=== PATIENT | female | born 1940 | race Caucasian/White ===

== ENCOUNTER 2020-09-26 12:31 | Emergency (ER) | payer OTHER ==
--- OUTSIDE RECORDS SUMMARY | 2020-09-26 12:33 | XMS REPORT | Clinical Summary ---
:1940 Author Organization [facility] Address [address] [place] [address] Care Team Providers Name Role Phone Anthony Odell MD Primary Care Provider Allergies No Known Active Allergies Medications Medication Sig Dispensed Refills Start Date End Date Status rosuvastatin (CRESTOR) Take 5 mg by 0 Active 5 MG tablet mouth. SYNTHROID 75 mcg tablet 0 01/29/2017 Active TOPROL XL 25 mg 24 hr 0 01/20/2017 Active tablet VIT A/VIT C/VIT Take by mouth. 0 Active E/ZINC/COPPER (VITAMINS A,C,D-LXBH-OLOCWI ORAL) travoprost (TRAVATAN Z) daily. 0 02/02/2017 Active 0.004 % valsartan-hydrochloroth Take 1 tablet by 1 8 Active iazide (DIOVAN-HCT) mouth daily. 80-12.5 mg per tablet Active Problems Problem Noted Date Hemorrhoids GERD (gastroesophageal reflux disease) Colon polyp Family history of cancer in mother Surgical History Surgery Date Site/Laterality Comments COLONOSCOPY HYSTERECTOMY TONSILLECTOMY Medical History Medical History Date Comments Hemorrhoids GERD (gastroesophageal reflux disease) Colon polyp Hypertension Hyperlipidemia Bronchitis Disease of thyroid gland Family history of cancer in mother Macular degeneration Diverticulosis Family History Medical History Relation Name Comments Colon cancer Mother Relation Name Status Comments Father Mother Social History Tobacco Use Types Packs/Day Years Used Date Never Smoker Smokeless Tobacco: Never Used Tobacco Cessation: Counseling Given: No Alcohol Use Drinks/Week oz/Week Comments Yes Sex Assigned at Date Recorded Not on file Last Filed Vital Signs Not on file Plan of Treatment Health Maintenance Due Date Last Done Comments SHINGLES VACCINES (#1) 1990 65+ PNEUMOCOCCAL VACCINE (1 of 1 - PPSV23) 2005 INFLUENZA VACCINE 06/06/2020 Results Not on fileafter 09/26/2019 Insurance Payer Benefit Plan / Subscriber ID Effective Dates Phone Addre ss Type Group HUMANA MEDICARE HUMANA MEDICARE [id number] 2018-Present PPO PPO/PFFS/[facility] Advance Directives For more information, please contact: [phone] Type Date Recorded Patient Credit Portfolio Manager Explanati on Advance Directives, Living Will and Medical Power of Slitter Service And Setter
--- OUTSIDE RECORDS SUMMARY | 2020-09-26 12:34 | XMS REPORT | Continuity of Care Document ---
:1940 Author Organization [facility] t Address [address] [place] [address] Care Team Providers Name Role Phone Melecio Odell MD Primary Care Physician Payers Payer Name Policy Type Policy Number Effective Date Expiration Date S ource Problems Condition Condition Condition Status Onset Resolution Last Treating Co mments Source Name Details Category Date Date Treatment Clinician Date Hemorrhoid Hemorrhoid Disease [facility] [place] [facility] GERD GERD Disease Active [facility] (gastroeso (gastroeso [facility] phageal phageal st reflux reflux disease) disease) Colon Colon Disease Active [facility] polyp polyp Methodi [facility] Family Family Disease Active [facility] history of history of [place] cancer in cancer in st mother mother Allergies, Adverse Reactions, Alerts Allergy Allergy Status Severity Reaction(s) Onset Inactive Treating Comm ents Source Name Type Date Date Clinician No Known DA Active U 2019-11 [facility] [place] [facility] DA Active [facility] omycin 03-11 [place] 00:[facility] DA Active OR [facility] omycin 03-08 [place] 00:[facility] Family History Family Member Diagnosis Comments Start Date Stop Date Source Natural mother Colon cancer [facility] Social History Social Habit Start Date Stop Date Quantity Comments Source Sex Assigned At [facility] ethodist Tobacco use and 2018-12-06 2018-12-06 Never used [facility] ethodist exposure 00:00:00 00:00:00 Alcohol intake 2018-12-06 2018-12-06 Current drinker [facility] 00:00:00 00:00:00 of alcohol (finding) Smoking Status Start Date Stop Date Source Never smoker [facility] t Medications Ordered Filled Start Stop Current Ordering Indication Dosage Frequency Signature Comments Components Source Medication Medication Date Date Medication? Clinician (SIG) Name Name VIT A/VIT Yes Take by [place] [facility] C/VIT 12-06 mouth. Methodi E/ZINC/MARTINEZ 14:00: st ER 40 (VITAMINS A,C,E-ZINC- COPPER ORAL) rosuvastati Yes 5mg Take 5 mg [place] (CRESTOR) 12-06 by mouth. Met hodi 5 MG tablet 14:00: st 27 valsartan-h 2017-11 Yes 1{tbl} QD Take 1 [place] ydrochlorot 2-07 tablet by [facility] hiazide 00:00: mouth st (DIOVAN-HCT 00 daily. ) 80-12.5 mg per tablet travoprost 2017-0 Yes daily. [facility] (TRAVATAN 3-30 [facility]i Z) 0.004 % 00:00: st 00 SYNTHROID 2017-0 Yes [place] 75 mcg 3-26 [facility] tablet 00:00: st 00 TOPROL XL 2017-0 Yes [facility] 25 mg 24 hr 3-17 [facility] tablet 00:00: st 00 Procedures This patient has no known procedures. Plan of Care Planned Activity Planned Date Details Comments Source Future Scheduled 2020-06-06 INFLUENZA VACCINE [facility] 00:00:00 [code = INFLUENZA VACCINE] Future Scheduled 2005 65+ PNEUMOCOCCAL [facility] Test 00:00:00 VACCINE (1 of 1 - PPSV23) [code = 65+ PNEUMOCOCCAL VACCINE (1 of 1 - PPSV23)] Future Scheduled 1990 [facility] [code = SHINGLES VACCINES (#1)] Results Test Description Test Time Test Comments Results Result Sourc e Comments - XR FLUORO NDL 2020-08-30 20:02:00 [facility] 1940 Sex: F Patient Name: NAI COELHO Unit No: [id number] EXAMS: CPT CODE: [id number] XR FLUORO NDL 35589 Fluoroscopically guided injection of the left plantar fascia with steroid COMPARISON: No prior exams available. FINDINGS: After informed consent was obtained a needle was placed in the left plantar fascia with fluoroscopic guidance. Its position was confirmed by obtaining a radiograph. Subsequently 2 mL of Kenalog 40 mg per cc and 2 mL of lidocaine was injected. No immediate complications were encountered. 14 seconds of fluoroscopy time was utilized. IMPRESSION: Technically successful steroid injection of the left plantar fascia at 2001 Reported and signed by: Richie Odell M.D. CC: Omega Moran MD Technologist: RT Madison.(R) Transcribed D/ (2001) FletcherSLJ [facility] [place] [facility] NAME: NAI COELHO [address] PHYS: Omega Rojas MD : 1940 AGE: 80 SEX: F [place], [place] [address] LOC: Y.RAD PHONE #: [phone] EXAM DATE: 08/28/2020 STATUS: MARY CLI FAX #: [phone] RAD #: [id number] D/C DT PAGE 1 Signed Report Patient Name: NAI COELHO Unit No: [id number] EXAMS: CPT CODE: [id number] XR FLUORO NDL 48429 <Continued> Orig Print D/T: S: 08/30/2020 (2004) [facility] [place] [facility] NAME: NAI COELHO [address] PHYS: Omega Rojas MD : 1940 AGE: 80 SEX: F [place] [address] LOC: Y.RAD PHONE #: [phone] EXAM DATE: 08/28/2020 STATUS: DEP CLI FAX #: [phone] RAD #: [id number] D/C DT PAGE 2 Signed Report - MRI LW JNT W/O 2020-08-12 Patient Name: CONT LT 12:50:00 NAI COELHO Unit No: [id number] EXAMS: CPT CODE: [id number] MRI LW JNT W/[place] [address] MRI OF THE LEFT ANKLE DIAGNOSIS: 1. 11 mm ganglion cyst between the posterior tibial tendon and the spring ligament with partial tearing of the distal posterior tibial tendon without retraction. 2. Partial-thickness longitudinal split tear of the peroneus brevis tendon without subluxation. There is a small amount of tendon sheath effusion which may represent tenosynovitis. 3. Effusion and/or synovitis of the tibiotalar and posterior subtalar joints. COMMENT: COMPARISON: No prior exams available. Scans were performed in the sagittal, axial and coronal planes utilizing T1, spin density with and without fat saturation and inversion recovery images. No focal bony or hyaline cartilage lesions are seen. There is no evidence for a stress fracture. Tendon abnormalities are as described. There is no evidence for ligamentous sprain or tear. There is a plantar calcaneal spur without evidence for plantar fasciitis. at 1250 Reported and signed by: Jose Luis Resendiz MD CC: Omega Moran MD Technologist: Ally Henderson(R) Transcribed D/ (1250) FletcherJCL [facility] [place] [facility] NAME: NAI COELHO [address] PHYS: Omega Rojas MD : 1940 AGE: 80 SEX: F [place] [address] LOC: Y.MRI PHONE #: [phone] EXAM DATE: 08/12/2020 STATUS: REG CLI FAX #: [phone] RAD #: [id number] D/C DT PAGE 1 Signed Report Patient Name: NAI COELHO Unit No: [id number] EXAMS: CPT CODE: [id number] [place] JNT W/[place] [address] <Continued> Orig Print D/T: S: 08/12/2020 (1253) [facility] [place] [facility] NAME: NAI COELHO [address] PHYS: Omega Rojas MD : 1940 AGE: 80 SEX: F [place], [place] [address] LOC: Y.MRI PHONE #: [phone] EXAM DATE: 08/12/2020 STATUS: REG CLI FAX #: [phone] RAD #: [id number] D/C DT PAGE 2 Signed Report - XR FLUORO FOR 2019-03-11 Patient Name: SPINE INJ 12:41:00 NAI COELHO Unit No: [id number] EXAMS: CPT CODE: [id number] XR FLUORO FOR SPINE INJ 22437 LUMBAR TRANSFORAMINAL INJECTION REFERRING PHYSICIAN: PREOPERATIVE DIAGNOSIS: Degenerative Lumbar Disc Disease. POSTOPERATIVE DIAGNOSIS: Bilateral lumbar radiculopathy PROCEDURES PERFORMED 1. Fluoroscopically guided needle localization of the bilateral L4, bilateral L5 spinal nerve/nerves with transforaminal epidural steroid injection/injections. 2. Transforaminal epidurogram/epidurogram s at bilateral L4, bilateral L5. FINDINGS: Poor filling bilateral L4, bilateral L5. Concordant provocation bilateral L5 buttocks, left L4 hip. Pain relief-100%. ANTIBIOTIC: Cefazolin ESTIMATED BLOOD LOSS: Minimal ANESTHESIA: (TIVA )Total intravenous anesthetic (patient intolerant to sedatives and hypnotics) COMPLICATIONS: None DETAILS OF PROCEDURE: After obtaining stable vital signs, informed consent and IV access, with no known contraindications to proceeding, the patient was taken to the fluoroscopy suite and placed in a prone position with all extremities padded and appropriate monitors placed. A sterile prep and drape was performed over the lumbosacral spine. Using fluoroscopic visualization at each level the insertion site was marked for a paravertebral approach to the foramen. Using standard technique, a 25 gauge needle was advanced to the base of the pedicle. In AP view, final positioning was obtained outside the 6 on the clock position on the pedicle. Then, 1 ml of Isovue-300 contrast was injected to produce the epidurograms. No paresthesias were elicited with needle insertion or injection and there were no signs of intravascular or intrathecal uptake. Then, with 1 ml of 4% lidocaine and 10 mg of triamcinolone was injected incrementally with frequent negative aspirations. There were no signs of intravascular or intrathecal uptake. Each subsequent level was done using the same technique and medications. The patient's vital signs remained stable. The patient was taken to the PACU in good condition. at 1241 Reported and signed by: Jluis Jones M.D. [facility] NAME: NAI COELHO [address] PHYS: Jluis Lopez MD [place], [place] [address] : 1940 AGE: 78 SEX: F LOC: MARA PHONE #: [phone] EXAM DATE: 03/11/2019 STATUS: REG SD FAX #: [phone] RAD #: [id number] D/C DT PAGE 1 Signed Report (CONTINUED) Patient Name: NAI COELHO Unit No: [id number] EXAMS: CPT CODE: [id number] XR FLUORO FOR SPINE INJ 97735 <Continued> CC: Technologist: Sahra Canales(R) Transcribed D/ (4301) tLENI [facility] NAME: NAI COELHO [address] PHYS: Jluis Lopez MD [place], [place] [address] : 1940 AGE: 78 SEX: F LOC: MARA PHONE #: [phone] EXAM DATE: 03/11/2019 STATUS: REG [facility] FAX #: [phone] RAD #: [id number] D/C DT PAGE 2 Signed Report Patient Name: NAI COELHO Unit No: [id number] EXAMS: CPT CODE: [id number] XR FLUORO FOR SPINE INJ 28710 <Continued> Orig Print D/T: S: 03/11/2019 (1244) [facility] NAME: NAI COELHO [address] [facility] [address] PHYS: DOCUD - Doctor,Jluis Pino MD [place], [place] [address] : 1940 AGE: 78 SEX: F LOC: WongGABRIEL PHONE #: [phone] EXAM DATE: 03/11/2019 STATUS: REG [facility] FAX #: [phone] RAD #: [id number] D/C DT PAGE 3 Signed Report
[2020-09-26] MEDS ORDERED: IBUPROFEN 400 MG TAB ONE (14:08)
--- NOTE | 2020-09-26 14:42 | RAD REPORT ---
EXAM DESCRIPTION: RAD - Knee Right 3 View - 09/26/2020 2:17 pm CLINICAL HISTORY: Right knee pain FINDINGS: No fracture or dislocation is seen. Mild osteoarthritis medial compartment
--- NOTE | 2020-09-26 14:42 | RAD REPORT ---
EXAM DESCRIPTION: RAD - Hip Right 2 View - 09/26/2020 2:17 pm CLINICAL HISTORY: Right hip pain FINDINGS: No fracture or dislocation is seen. Mild osteoarthritis consisting of subchondral sclerosis and mild joint space narrowing. Bones appear osteoporotic
--- NOTE | 2020-09-26 15:05 | ER ---
Nurse's Notes [facility] Name: Anusha Vazquez Age: 80 yrs Sex: Female : 1940 Arrival Date: 09/26/2020 Time: 12:36 Bed 19 Private MD: Tanika Odell C Diagnosis: Pain in right leg Presentation: 09/26 12:48 Chief complaint: Patient states: RLE pain/cramping for 1 week. Started as cramps to ll1 extremity. Tried to hydrate. Noticed pain and swelling to calf area since . Area feels hot. Coronavirus screen: Client denies travel out of the [place] in the last 14 days. At this time, the client does not indicate any symptoms associated with coronavirus-19. Ebola Screen: Patient denies travel to an Ebola-affected area in the 21 days before illness onset. Initial Sepsis Screen: Does the patient meet any 2 criteria? No. Patient's initial sepsis screen is negative. Does the patient have a suspected source of infection? Yes: Bone or joint infection. Risk Assessment: Do you want to hurt yourself or someone else? Patient reports no desire to harm self or others. Onset of symptoms was September 19, 2020. 12:48 Method Of Arrival: Ambulatory ll1 12:48 Acuity: GRIFFIN 3 ll1 Triage Assessment: 15:36 General: Appears in no apparent distress. Behavior is calm, cooperative. Pain:. ae4 Historical: - Allergies: 12:52 Bactrim DS; ll1 - PMHx: 12:52 High Cholesterol; Hypertension; Hypothyroidism; macular degeneration; ll1 - PSHx: 12:52 Hysterectomy; ll1 - Immunization history:: Flu vaccine is up to date. - Social history:: Smoking status: Patient denies any tobacco usage or history of. Screenin:36 Abuse screen: Denies threats or abuse. Nutritional screening: No deficits noted. ae4 Tuberculosis screening: No symptoms or risk factors identified. Fall Risk None identified. Assessment: 12:45 General: Appears in no apparent distress. comfortable. Pain: Complains of pain in right ae4 calf Pain does not radiate. Neuro: Level of Consciousness is awake, alert, obeys commands, Oriented to person, place, time, situation, Appropriate for age. Cardiovascular: Patient's skin is warm and dry. Respiratory: Airway is patent Respiratory effort is even, unlabored, Respiratory pattern is regular, symmetrical. GI: No signs and/or symptoms were reported involving the gastrointestinal system. : No signs and/or symptoms were reported regarding the genitourinary system. EENT: No signs and/or symptoms were reported regarding the EENT system. Derm: redness and mild swelling to right posterior lower extremity. Musculoskeletal: Swelling present in right calf. 13:30 Reassessment: Patient and/or family updated on plan of care and expected duration. Pain ae4 level reassessed. Patient is alert, oriented x 3, equal unlabored respirations, skin warm/dry/pink. 14:49 Reassessment: Patient states " I can stand the pain", refused medication. Provider ae4 notified. Vital Signs: 12:48 BP 149 / 72; Pulse 74; Resp 16; Temp 97.5; Pulse Ox 100% ; Weight 69.4 kg; Height 5 ft. ll1 3 in. (160.02 cm); Pain 8/10; 13:30 BP 136 / 97; Pulse 86; Resp 16; Pulse Ox 100% on R/A; dh3 14:53 BP 119 / 70; Pulse 93; Resp 16; Pulse Ox 97% on R/A; dh3 12:48 Body Mass Index 27.10 (69.40 kg, 160.02 cm) ll1 ED Course: 12:36 Patient arrived in ED. mr 12:36 Tanika Odell MD is Private Physician. mr 12:40 Placed in gown. Bed in low position. Call light in reach. Side rails up X 1. Pulse ox ae4 on. NIBP on. Warm blanket given. 12:50 Triage completed. ll1 12:51 Arm band placed on. ll1 13:29 Abdullahi Fields PA is PHCP. cp 13:29 Thien Waite MD is Attending Physician. cp 13:45 Estrada Guo RN is Primary Nurse. ae4 14:18 XRAY Hip RIGHT 2 view In Process Unspecified. EDMS 14:18 XRAY Knee RIGHT 3 view In Process Unspecified. EDMS 15:04 US Extremity Venous Unilateral Ltd In Process Unspecified. EDMS 15:37 No provider procedures requiring assistance completed. Patient did not have IV access ae4 during this emergency room visit. Administered Medications: 14:49 Not Given (Patient Refused): Ibuprofen 800 mg PO once ae4 Outcome: 15:05 Discharge ordered by MD. hernadez 15:37 Discharged to home ambulatory. ae4 15:37 Condition: stable 15:37 Discharge instructions given to patient, Instructed on discharge instructions, follow up and referral plans. Demonstrated understanding of instructions, follow-up care, medications, Prescriptions given X 1. 15:41 Patient left the ED. ae4 Signatures: Dispatcher [employer] EDAZ JohnsMarisela mr Abdullahi Fields PA PA cp Herrera, Deanna 3 Estrada Guo RN RN ae4 Reena Pereira RN RN ll1 Corrections: (The following items were deleted from the chart) 14:49 13:58 Ibuprofen 800 mg PO ae4 ae4
--- NOTE | 2020-09-26 15:05 | EDPHYS ---
Physician Documentation [facility] Name: Anusha Vazquez Age: 80 yrs Sex: Female : 1940 Arrival Date: 09/26/2020 Time: 12:36 Bed 19 Private MD: Tanika Odell C ED Physician Thien Waite HPI: 09/26 13:55 This 80 yrs old Female presents to ER via Ambulatory with complaints of Leg cp Swelling, Leg Pain. 13:55 The patient presents with pain, that is acute, swelling, tenderness. The complaints cp affect the posterior aspect of right knee and right calf. 13:55 Context: resulted from an unknown cause, the patient can fully bear weight, the patient cp is able to ambulate, with mild difficulty. Onset: The symptoms/episode began/occurred 1 week(s) ago. Associated signs and symptoms: Pertinent negatives fever, chest pain, shortness of breath. Treatment prior to arrival includes: no previous treatment. 13:55 Patient denies trauma of known injury. cp Historical: - Allergies: 12:52 Bactrim DS; ll1 - PMHx: 12:52 High Cholesterol; Hypertension; Hypothyroidism; macular degeneration; ll1 - PSHx: 12:52 Hysterectomy; ll1 - Immunization history:: Flu vaccine is up to date. - Social history:: Smoking status: Patient denies any tobacco usage or history of. ROS: 14:00 MS/extremity: Positive for pain, swelling, tenderness, of the right leg. cp 14:00 Constitutional: Negative for body aches, chills, fever, poor PO intake. cp 14:00 Cardiovascular: Negative for chest pain, palpitations. 14:00 Respiratory: Negative for cough, shortness of breath, wheezing. 14:00 Skin: Negative for rash. 14:00 Neuro: Negative for altered mental status, headache, syncope, weakness. 14:00 All other systems are negative. Exam: 14:05 Head/Face: Normocephalic, atraumatic. cp 14:05 Constitutional: The patient appears in no acute distress, alert, awake, non-diaphoretic, non-toxic, well developed, well nourished. 14:05 Chest/axilla: Inspection: normal. 14:05 Cardiovascular: Rate: normal, Rhythm: regular, Edema: is not appreciated, JVD: is not appreciated. 14:05 Respiratory: the patient does not display signs of respiratory distress, Respirations: normal, no use of accessory muscles, no retractions, labored breathing, is not present, Breath sounds: are clear throughout, no decreased breath sounds, no stridor, no wheezing. 14:05 Abdomen/GI: Exam negative for discomfort, distension, guarding, Inspection: abdomen appears normal. 14:05 Back: pain, is absent, ROM is normal. 14:05 Musculoskeletal/extremity: Joints: All joints are normal except the right hip displays tenderness, the right knee displays tenderness, DVT Exam: pain, that is mild, of the right leg, tenderness, that is mild, of the right leg, positive Homans' sign noted on exam. 14:05 Skin: cellulitis, is not appreciated, no rash present. cp Vital Signs: 12:48 BP 149 / 72; Pulse 74; Resp 16; Temp 97.5; Pulse Ox 100% ; Weight 69.4 kg; Height 5 ft. ll1 3 in. (160.02 cm); Pain 8/10; 13:30 BP 136 / 97; Pulse 86; Resp 16; Pulse Ox 100% on R/A; dh3 14:53 BP 119 / 70; Pulse 93; Resp 16; Pulse Ox 97% on R/A; dh3 12:48 Body Mass Index 27.10 (69.40 kg, 160.02 cm) ll1 MDM: 13:34 Patient medically screened. cp 15:00 ED course: Received verbal report from [facility] that right leg US negative for DVT. cp 15:05 Data reviewed: vital signs, nurses notes, radiologic studies, plain films, ultrasound. cp 15:05 Differential diagnosis: closed fracture, DVT, cellulitis. Counseling: I had a detailed cp discussion with the patient and/or guardian regarding: the historical points, exam findings, and any diagnostic results supporting the discharge/admit diagnosis, radiology results, to return to the emergency department if symptoms worsen or persist or if there are any questions or concerns that arise at home. 15:05 ED course: VSS. Radiology studies negative. Will discharge to home for continued cp monitoring. 09/26 13:48 Order name: US Extremity Venous Unilateral Ltd; Complete Time: 15:28 cp 09/26 15:28 Interpretation: Report reviewed. 09/26 13:51 Order name: XRAY Hip RIGHT 2 view; Complete Time: 15:04 cp 09/26 15:04 Interpretation: Report reviewed. cp 09/26 13:51 Order name: XRAY Knee RIGHT 3 view; Complete Time: 15:04 cp 09/26 15:04 Interpretation: Report reviewed. cp Administered Medications: 14:49 Not Given (Patient Refused): Ibuprofen 800 mg PO once ae4 Disposition: 09/27 06:59 Co-signature as Attending Physician, Thien Waite MD I agree with the assessment and kdr plan of care. Disposition: 09/26/20 15:05 Discharged to Home. Impression: Pain in right leg. - Condition is Stable. - Discharge Instructions: Musculoskeletal Pain, Heat Therapy. - Prescriptions for Mobic 7.5 mg Oral Tablet - take 1 tablet by ORAL route once daily take with food; 20 tablet. - Medication Reconciliation Form, Thank You Letter, Antibiotic Education, Prescription Opioid Use form. - Follow up: Private Physician; When: 2 - 3 days; Reason: Recheck today's complaints. - Problem is new. - Symptoms have improved. Signatures: Dispatcher [employer] EDMS Thien Waite MD MD kdr Abdullahi Fields PA PA cp Estrada Guo RN RN ae4 Reena Pereira RN RN ll1 Corrections: (The following items were deleted from the chart) 09/26 15:41 15:05 09/26/2020 15:05 Discharged to Home. Impression: Pain in right leg. Condition is ae4 Stable. Forms are Medication Reconciliation Form, Thank You Letter, Antibiotic Education, Prescription Opioid Use. Follow up: Private Physician; When: 2 - 3 days; Reason: Recheck today's complaints. Problem is new. Symptoms have improved. cp
--- NOTE | 2020-09-26 15:13 | RAD REPORT ---
EXAM DESCRIPTION: USExtremity Venous Uni Ltd09/26/2020 3:04 pm CLINICAL HISTORY: Right leg pain and swelling. COMPARISON: None. FINDINGS: Right common femoral, superficial femoral, popliteal and right posterior tibial veins are compressible and demonstrate augmentation. Doppler demonstrates good flow. IMPRESSION: No evidence of deep venous thrombosis involving the right lower extremity.
[2020-09-26 20:54] VITALS: TEMP 97.5
[2020-09-26 20:56] VITALS: BP 119/70; O2SAT 97
== END 2020-09-26 15:41 | disposition home or self-care (01) ==
LOC: ER 12:31
DX: M79.604 Pain in right leg (principal); I10 Essential (primary) hypertension; Z88.1 Allergy status to other antibiotic agents
CPT/HCPCS: 93971; 99283

== ENCOUNTER 2024-12-25 14:24 | Emergency (ER) | payer OTHER ==
--- NOTE | 2024-12-25 15:01 | RAD REPORT ---
EXAM: CT brain without contrast HISTORY: Confused;Mental status change COMPARISON: None TECHNIQUE: Multiple contiguous axial images were obtained and a CT of the brain without contrast. Sag ittal and coronal reformats were performed. One or more of the following dose reduction techniques were used: Automated exposure control, adjust ment of the mA and/or kV according to patient size, and/or iterative reconstruction. FINDINGS: No evidence of hydrocephalus, intracranial hemorrhage, or extra-axial fluid collection. Moderate generalized brain atrophy. No evidence of midline shift or areas of brain edema. The calvarium is intact. The visualized paranasal sinuses and mastoid air cells are essentially clear . IMPRESSION: No evidence of acute intracranial abnormality. Moderate brain atrophy.
[2024-12-25 15:13] LABS: Specific Gravity 1.018 (1.005-1.030); Sqamous Epithelial None Seen /HPF (None Seen); Urine Bacteria None Seen /HPF (<20); Urine Bilirubin NEGATIVE (Negative); Urine Blood Trace (Negative); Urine Clarity Clear (Clear); Urine Color Light-Yellow (Yellow); Urine Crystals Unidentified Few /HPF (None Seen); Urine Culture Reflex Order NOT NEEDED; Urine Glucose NEGATIVE (Negative); Urine Ketones NEGATIVE (Negative); Urine Microscopic Reflex YN ORDER UMIC; Urine Mucus Slight /HPF (None Seen); Urine Nitrite NEGATIVE (Negative); Urine Protein NEGATIVE (Negative); Urine Urobilinogen Normal (Normal); Urine WBC <5 /HPF (<5); Urine Yeast (Budding) Trace /HPF (None Seen); Urine pH 5.5 (5.0-7.0)
--- NOTE | 2024-12-25 15:18 | RAD REPORT ---
EXAMINATION: ONE VIEW CHEST XR CLINICAL INDICATION: COUGH TECHNIQUE: Frontal chest projection is submitted. Examination is limited by patient positioning and t echnique. COMPARISON: 04/19/2023 FINDINGS: Prominent fibroemphysematous changes throughout the lungs. The heart is upper limit of normal in size . No displaced fractures identified. IMPRESSION: No acute intrathoracic abnormalities.
[2024-12-25 15:20] LABS: Influenza A Ag Positive; Influenza B Ag Negative; SARS-CoV-2 Antigen Rapid Res Negative (Negative)
[2024-12-25 15:40] LABS: Absolute Eosinophils 0.1 K/uL (0-0.5); Absolute Lymphocytes (CBC) 0.4 K/uL (0.7-4.9); Absolute Monocytes 0.8 K/uL (0.1-1.3); Absolute Neutrophil 5.4 K/uL (1.8-8.0); Basophils % 0.4 % (0-1.3); Eosinophils % 1.4 % (0-4.4); Hematocrit 33.3 % (36.0-45.0); Hemoglobin 11.4 g/dL (12.0-15.0); Lymphocytes % 5.5 % (15.3-44.8); MCH 29.8 pg (27.0-35.0); MCHC 34.3 g/dL (32.0-36.0); MCV 86.8 fL (80-100); MPV 8.4 fL (7.6-11.3); Monocytes % 12.3 % (3.3-12.3); Neutrophils % 80.4 % (41.7-73.7); Platelets 150 thou/uL (152-406); RBC Red Blood Cell Count 3.83 M/uL (3.86-4.86); Red Cell Distribution Width 13.8 % (12.1-15.2)
[2024-12-25 15:47] LABS: PT Prothrombin Time 12.6 SECONDS (9.4-12.5); PTT, Activated Partial Thromb 28.4 SECONDS (24.3-36.9); Protime INR 1.2
[2024-12-25 16:31] LABS: Albumin 3.2 g/dL (3.4-5.0); Albumin/Globulin Ratio 1.1 (1.1-1.8); Anion Gap 8.5 mEq/L (5.0-15.0); Globulin 2.9 g/dL (2.3-3.5); Potassium 3.5 mEq/L (3.5-5.1); Protein, Total 6.1 g/dL (6.4-8.2); Troponin High Sensitivity 10.3 pg/mL (<58.9)
--- NOTE | 2024-12-25 16:48 | ER ---
Nurse's Notes [facility] Name: Anusha Vazquez Age: 84 yrs Sex: Female : 1940 Arrival Date: 12/25/2024 Time: 14:24 Bed 5 Private MD: Diagnosis: Influenza due to identified novel influenza A virus Presentation: 12/25 14:27 Coronavirus screen: At this time, the client does not indicate any symptoms associated ld1 with coronavirus-19. Ebola Screen: No symptoms or risks identified at this time. Risk Assessment: Do you want to hurt yourself or someone else? Patient reports no desire to harm self or others. Onset of symptoms was December 25, 2024. 14:27 Method Of Arrival: EMS: [facility] ld1 14:27 Acuity: GRIFFIN 2 ld1 14:29 Chief complaint: EMS states: toned out to patient home for SOB. AMS and febrile on ld1 scene. EMS administered 975mg of Tylenol. Initial Sepsis Screen: Does the patient meet any 2 criteria? No. Patient's initial sepsis screen is negative. Does the patient have a suspected source of infection? No. Patient's initial sepsis screen is negative. Triage Assessment: 14:28 General: Appears in no apparent distress. comfortable, Behavior is calm, cooperative, ld1 appropriate for age. Pain: Denies pain. EENT: No signs and/or symptoms were reported regarding the EENT system. Neuro: Level of Consciousness is awake, alert, confused, Oriented to person. Cardiovascular: Capillary refill < 3 seconds Patient's skin is warm and dry. Rhythm is sinus rhythm. Respiratory: Airway is patent Respiratory effort is even, unlabored. GI: Abdomen is round non-distended. : No signs and/or symptoms were reported regarding the genitourinary system. Derm: Skin temperature is warm. Musculoskeletal: No signs and/or symptoms reported regarding the musculoskeletal system. Historical: - Allergies: 14:28 Bactrim DS; ld1 - PMHx: 14:28 High Cholesterol; Hypertension; Hypothyroidism; macular degeneration; ld1 - Immunization history:: Adult Immunizations up to date. - Infectious Disease History:: Denies. - Social history:: Smoking status: Patient denies any tobacco usage or history of. Assessment: 15:00 Reassessment: See triage assessment. ld1 Vital Signs: 14:28 BP 139 / 67; Pulse 90; Resp 18; Temp 99(O); Pulse Ox 97% on R/A; Height 5 ft. 4 in. ; ld1 Pain 0/10; 15:01 BP 131 / 63; Pulse 82; Resp 18; Pulse Ox 95% on R/A; ld1 14:28 Pain Scale: Adult ld1 ED Course: 14:25 Patient arrived in ED. iw 14:26 Cj Roy MD is Attending Physician. sp3 14:27 Angeles Ansari, RN is Primary Nurse. ld1 14:28 Triage completed. ld1 14:29 Arm band placed on right wrist. ld1 14:55 CT Head Brain wo Cont In Process Unspecified. EDMS 14:55 COVID swab sent to lab. Flu and/or RSV swab sent to lab. ty 15:00 Straight cath inserted, using sterile technique, 14 Fr. Returned clear yellow urine. ld1 Patient tolerated well. 15:00 Urine collected: straight cath specimen, clear. ty 15:01 Maintain EMS IV. Dressing intact. Good blood return noted. Site clean \T\ dry. Gauge \T\ ld 1 site: 20G RAC. 15:05 Chest Single View XRAY In Process Unspecified. EDMS 15:10 EKG done, by ED staff, reviewed by Cj Roy MD. ty 15:14 Initial lab(s) drawn, by me, First set of blood cultures drawn Right Arm. Inserted ty saline lock: 20 gauge in left forearm, using aseptic technique. Blood collected. Flushed with 10 mL NS. 15:28 Blood Culture Adult (2) Sent. ty 15:28 CBC with Diff Sent. ty 15:28 CMP Sent. ty 15:28 Lactate w/ 2H reflex if indic. Sent. ty 15:28 Protime (+inr) Sent. ty 15:28 Ptt, Activated Sent. ty 15:28 Troponin High Sensitivity Sent. ty 16:57 No provider procedures requiring assistance completed. IV discontinued, intact, iw bleeding controlled, No redness/swelling at site. Pressure dressing applied. Administered Medications: No medications were administered Outcome: 16:47 Discharge ordered by . sp3 17:07 Patient left the ED. iw Signatures: Dispatcher [employer] EDMS Anisha Garrison RN RN iw Angeles Ansari RN RN ld1 Cj Roy MD MD sp3 Rajesh Whiting ty
--- NOTE | 2024-12-25 16:48 | EDPHYS ---
Physician Documentation [facility] Name: Anusha Vazquez Age: 84 yrs Sex: Female : 1940 Arrival Date: 12/25/2024 Time: 14:24 Bed 5 Private MD: ED Physician Cj Roy HPI: 12/25 14:56 This 84 yrs old Female presents to ER via EMS with complaints of Altered Mental Status, sp3 Fever. 14:56 84-year-old female with history of hyperlipidemia, hypertension presents via EMS for sp3 chief complaint shortness of breath, fever and altered mental status with 911 activation by family. Active cough also reported. Appears to be confused to family. ROS, history physical limited secondary to age. Patient sees Dr. King for PCP.. Historical: - Allergies: 14:28 Bactrim DS; ld1 - PMHx: 14:28 High Cholesterol; Hypertension; Hypothyroidism; macular degeneration; ld1 - Immunization history:: Adult Immunizations up to date. - Infectious Disease History:: Denies. - Social history:: Smoking status: Patient denies any tobacco usage or history of. ROS: 14:57 Unable to obtain ROS due to altered mental status, sp3 Exam: 14:57 Constitutional: This is a well developed, well nourished patient who is awake, alert, sp3 and in no acute distress. Head/Face: Normocephalic, atraumatic. Eyes: Pupils equal round and reactive to light, extra-ocular motions intact. Lids and lashes normal. Conjunctiva and sclera are non-icteric and not injected. Cornea within normal limits. Periorbital areas with no swelling, redness, or edema. Neck: Trachea midline, no thyromegaly or masses palpated, and no cervical lymphadenopathy. Supple, full range of motion without nuchal rigidity, or vertebral point tenderness. No Meningismus. Chest/axilla: Normal chest wall appearance and motion. Nontender with no deformity. No lesions are appreciated. Cardiovascular: Regular rate and rhythm with a normal S1 and S2. No gallops, murmurs, or rubs. Normal PMI, no JVD. No pulse deficits. Respiratory: Lungs have equal breath sounds bilaterally, clear to auscultation and percussion. No rales, rhonchi or wheezes noted. No increased work of breathing, no retractions or nasal flaring. Abdomen/GI: Soft, non-tender, with normal bowel sounds. No distension or tympany. No guarding or rebound. No evidence of tenderness throughout. Back: No spinal tenderness. No costovertebral tenderness. Full range of motion. Skin: Warm, dry with normal turgor. Normal color with no rashes, no lesions, and no evidence of cellulitis. MS/ Extremity: Pulses equal, no cyanosis. Neurovascular intact. Full, normal range of motion. 14:57 Neuro: No gross focal abnormality. Patient asking repetitive questions and appears to be confused. Patient does recognize family., 15:30 ECG was reviewed by the Attending Physician. EKG demonstrates normal sinus rhythm at 83 sp3 bpm with normal intervals, normal QRS, normal axis, normal ST/T-segment's without evidence of acute ischemia. Vital Signs: 14:28 BP 139 / 67; Pulse 90; Resp 18; Temp 99(O); Pulse Ox 97% on R/A; Height 5 ft. 4 in. ; ld1 Pain 0/10; 15:01 BP 131 / 63; Pulse 82; Resp 18; Pulse Ox 95% on R/A; ld1 14:28 Pain Scale: Adult ld1 MDM: 14:27 Medical Screening Exam initiated sp3 14:58 Data reviewed: vital signs, nurses notes, EMS record, lab test result(s), EKG, sp3 radiologic studies. ED course: 84-year-old female with altered mental status, shortness of breath and reported subjective fever from family. Differential diagnosis is broad and includes viral illness, COVID-19, influenza, pneumonia, bronchitis, UTI, other intracranial pathology, TIA, electrolyte abnormality, other infection, among others. I am at highly suspicious of acute coronary syndrome, shock, or any other critical pathology. Workup will include general labs including lactate and cultures, UA, swabs, chest x-ray, CT scan of the head and general supportive care. Vital signs are currently normal. Will later on antibiotics as indicated with probable admission to hospitalist service.. 16:47 ED course: Full workup negative except for flu which is positive. Vital signs normal. sp3 We will safely discharge patient home at this time.. 12/25 14:28 Order name: Blood Culture Adult (2) sp3 12/25 14:28 Order name: CBC with Diff; Complete Time: 15:53 sp3 12/25 14:28 Order name: CMP; Complete Time: 16:47 sp3 12/25 14:28 Order name: Lactate w/ 2H reflex if indic.; Complete Time: 15:57 sp3 12/25 14:28 Order name: Protime (+inr); Complete Time: 15:53 sp3 12/25 14:28 Order name: Ptt, Activated; Complete Time: 15:53 3 12/25 14:28 Order name: Urinalysis w/ reflexes; Complete Time: 15:26 sp3 12/25 14:28 Order name: Troponin High Sensitivity; Complete Time: 16:47 sp3 12/25 15:00 Order name: COVID-19 Ag + Flu A+B Ag; Complete Time: 15:26 EDMS 12/25 14:28 Order name: Chest Single View XRAY; Complete Time: 15:26 3 12/25 14:39 Order name: CT Head Brain wo Cont; Complete Time: 15:26 3 12/25 14:28 Order name: EKG; Complete Time: 14:29 sp3 12/25 14:28 Order name: Cardiac monitoring; Complete Time: 15:28 3 12/25 14:28 Order name: EKG - Nurse/Tech; Complete Time: 15:28 3 12/25 14:28 Order name: IV Saline Lock - Large Bore; Complete Time: 14:32 sp3 12/25 14:28 Order name: Labs collected and sent; Complete Time: 15:28 3 12/25 14:28 Order name: O2 Per Protocol; Complete Time: 14:32 3 12/25 14:28 Order name: O2 Sat Monitoring; Complete Time: 14:32 sp3 12/25 14:28 Order name: Vital Signs; Complete Time: 14:32 sp3 Administered Medications: No medications were administered Disposition Summary: 12/25/24 16:47 Discharge Ordered Notes: Location: Home sp3 Condition: Stable sp3 Diagnosis - Influenza due to identified novel influenza A virus sp3 Followup: sp3 - With: Private Physician - When: Upon discharge from the Emergency Department - Reason: Continuance of care Discharge Instructions: - Discharge Summary Sheet sp3 - Influenza, Adult sp3 Forms: - Medication Reconciliation Form sp3 - Antibiotic Education sp3 - Prescription Opioid Use sp3 - Patient Portal Instructions sp3 - Leadership Thank You Letter sp3 Signatures: Dispatcher [employer] EDAngeles Odom RN RN ld1 Cj Roy MD MD sp3 Corrections: (The following items were deleted from the chart) 15:00 14:29 SARS-COV-2 Antigen Rapid+I.LAB.BRZ ordered. EDMS EDMS
[2024-12-25 20:32] VITALS: TEMP 99
[2024-12-25 20:33] VITALS: BP 131/63; O2SAT 95
== END 2024-12-25 17:07 | disposition home or self-care (01) ==
LOC: ER 14:24
DX: J10.1 Influenza due to other identified influenza virus with other respiratory manifestations (principal); R41.82 Altered mental status, unspecified; Z11.52 Encounter for screening for COVID-19
CPT/HCPCS: 36415; 70450; 71045; 80053; 81001; 83605; 84484; 85025; 85610; 85730; 87040; 87428; 93005